=== PATIENT | female | born 1950 | race Caucasian/White ===

== ENCOUNTER 2023-04-24 09:35 | Outpatient (CLI) | payer MEDICARE, BC | END 2023-04-24 09:36 | disposition home or self-care (01) | LOC: BICRAD 09:35 | PROVIDERS: ATTEND Internal Medicine | DX: J18.9 Pneumonia, unspecified organism (principal) | CPT/HCPCS: 71046 ==

== ENCOUNTER 2023-10-30 12:03 | Outpatient (CLI) | payer MEDICARE, BC | END 2023-10-30 12:04 | disposition home or self-care (01) | LOC: BICULT 12:03 | PROVIDERS: ATTEND Internal Medicine | DX: R22.32 Localized swelling, mass and lump, left upper limb (principal) | CPT/HCPCS: 76999 ==

== ENCOUNTER 2023-11-12 11:09 | Outpatient (CLI) | payer MEDICARE, BC | END 2023-11-12 11:10 | disposition home or self-care (01) | LOC: BICRAD 11:09 | PROVIDERS: ATTEND Internal Medicine | DX: R05.9 Cough, unspecified (principal) | CPT/HCPCS: 71046 ==